=== PATIENT | female | born 1980 ===

== ENCOUNTER 2022-05-08 17:42 | Emergency (ER) | payer SELFPAY | END 2022-05-08 21:58 | disposition home or self-care (01) | LOC: ERS 17:42 | DX: S20.219A Contusion of unspecified front wall of thorax, initial encounter (principal); Y04.8XXA Assault by other bodily force, initial encounter; F17.210 Nicotine dependence, cigarettes, uncomplicated | CPT/HCPCS: 70450; 71045 ==